=== PATIENT | male | born 1995 | race Caucasian/White ===

== ENCOUNTER → 2020-09-21 01:13 | Outpatient (CLI) | payer OTHER, SELFPAY ==
[2020-09-21 17:52] LABS: SARS-CoV-2 RNA PCR Negative
== END ==
PROVIDERS: PCP Internal Medicine; Visit Provider Internal Medicine Gastroenterology
DX: Z01.812 Encounter for preprocedural laboratory examination (principal); Z20.822 Contact with and (suspected) exposure to COVID-19
CPT/HCPCS: C9803; U0003; U0005

== ENCOUNTER 2020-09-24 02:27 | Day surgery (SDC) | payer OTHER, SELFPAY ==
[2020-09-16 15:32] VITALS: BMI 19.3
[2020-09-24 11:03] VITALS: BP 118/76; PULSE 78; RESP 18; TEMP 36.3; O2SAT 100
[2020-09-24] MEDS: LACTATED RINGERS 1,000 ML 150 ML IV CONT (11:06)
--- NOTE | 2020-09-24 11:15 | P.PNAN_ITS ---
Anes - Initial Pre Proc Eval Procedure: Operation Date: 09/24/20 12:00 Proposed Procedures p Esophagogastroduodenoscopy - Dominic Shannon MD Date/Time: 09/24/20 11:15 Surgeon: Dominic Shannon MD Pre Op Diagnosis: dysphagia Patient Data Age: 24 Gender: M Height: 1.68 m Weight: 51.9 kg Last Vital Signs Temp 97.3 F L 09/24/20 11:03 Pulse 78 09/24/20 11:03 Resp 18 09/24/20 11:03 BP 118/76 09/24/20 11:03 Pulse Ox 100 09/24/20 11:03 Allergies Allergy/AdvReac Type Severity Reaction Status Date / Time No Known Allergies Allergy Unverified 09/24/20 11:02 Home Medications Medication Instructions Recorded Confirmed Type dextroamphetamine-amphetamine 10 10 mg PO DAILY 08/29/20 09/24/20 History mg tablet pantoprazole 40 mg tablet,delayed 40 mg PO QAM 08/29/20 09/24/20 History release Patient hx anesthesia problems: none Family hx anesthesia problems: none [facility] Past Medical History Medical History (Updated 08/29/20 @ 13:50 by Dominic Shannon MD) GERD (gastroesophageal reflux disease) Social History Social History (Updated 08/29/20 @ 13:41 by Karen Bonner CMA) Smoking status: Never smoker Tobacco type: smokeless tobacco Smokeless tobacco user: chewing tobacco Alcohol intake: current Substance use: never Living arrangements: with family Spiritual care concerns: No Anes - Eval Final PreProcedure Day of Procedure 09/24/20 11:15 Patient weight: normal Heart: regular rate and rhythm Lungs: clear to auscultation Airway: Mallampati scale class II Neurological: alert and oriented Last oral intake: >/= 8 hours ASA classification: II Emergent: no Anesthetic plan: proceed Anesthesia type and monitoring: general GIVS and standard monitoring Informed Consent: The patient's anesthetic plan and its attendant risks and benefits were discussed with the patient/family/POA. Questions were solicited and answers provided to the satisfaction of the patient/family/POA.
--- NOTE | 2020-09-24 12:11 | WPDHPUPDATE1 ---
History and Physical Update Update Date/Time: 09/24/20 12:11 History and Physical has been reviewed, including an updated exam of the patient. There are NO changes in the patient's condition. Risks, benefits, and alternatives have been discussed and questions answered. Patient agrees to proceed with procedure.
[2020-09-24 12:32] VITALS: BP 106/71; PULSE 108; RESP 23; O2SAT 98
[2020-09-24 12:42] VITALS: BP 106/72; PULSE 88; RESP 20; O2SAT 100
[2020-09-24 12:52] VITALS: BP 114/72; PULSE 76; RESP 21; O2SAT 100
== END 2020-09-24 13:07 | disposition home or self-care (01) ==
PROVIDERS: PCP Internal Medicine; Visit Provider Internal Medicine Gastroenterology
PROC: 0DJ08ZZ Inspection of Upper Intestinal Tract, Via Natural or Artificial Opening Endoscopic (ICD-10-PCS; CPT 43235; principal; 2020-09-24 12:00)
DX: R13.10 Dysphagia, unspecified (principal); K44.9 Diaphragmatic hernia without obstruction or gangrene; K29.50 Unspecified chronic gastritis without bleeding; K21.00 Gastro-esophageal reflux disease with esophagitis, without bleeding; F17.220 Nicotine dependence, chewing tobacco, uncomplicated
CPT/HCPCS: 43239; 43249; 88305; 88342; C1726; C9803; J2704; J7120; U0003; U0005